=== PATIENT | female | born 2000 | race African-American/Black ===

== ENCOUNTER 2020-11-04 17:44 | Emergency (ER) | payer SELFPAY ==
--- NOTE | 2020-11-04 17:51 | EDM.PDOC ---
ED HPI GENERAL MEDICAL PROBLEM - General Chief Complaint: Gastrointestinal Problem Stated Complaint: VOMITING Time Seen by Provider: 11/04/20 17:45 Source of Information: Reports: Patient History Limitations: Reports: No Limitations - History of Present Illness INITIAL COMMENTS - FREE TEXT/NARRATIVE: HISTORY AND PHYSICAL: History of present illness: Patient is a 20-year-old female who presents to the emergency room with complaints of nausea, vomiting and diarrhea that started approximately 2 hours [employer]. She complaints of generalized abdominal pain, associated with the vomiting and diarrhea. Patient denies any fever, chills, headache, change in vision, syncope or near syncope. Denies any chest pain, back pain, shortness of breath or cough. Denies any constipation or dysuria. Denies any concern for . Has not noted any blood in urine or stool. Patient has been eating and drinking appropriately. Review of systems: As per history of present illness and below otherwise all systems reviewed and negative. Past medical history: As per history of present illness and as reviewed below otherwise noncontributory. Surgical history: As per history of present illness and as reviewed below otherwise noncontributory. Social history: See social history for further information Family history: As per history of present illness and as reviewed below otherwise noncontributory. Physical exam: General: Well developed and well nourished 20 year old black female. Alert and orientated x 3. Nontoxic in appearance and in no acute distress. Vital signs are stable and have been reviewed by me. Nursing notes were reviewed. Accompanied by friend. HEENT: Atraumatic, normocephalic, pupils equal and reactive bilaterally, negative for conjunctival pallor or scleral icterus, mucous membranes moist, TMs normal bilaterally, throat clear, neck supple, nontender, trachea midline. No drooling or trismus noted. No meningeal signs. No hot potato voice noted. Lungs: Clear to auscultation bilaterally. No wheezes, rales, or rhonchi. Chest nontender. Normal work of breathing, no accessory muscles used. Heart: S1S2, regular rate and rhythm without overt murmur, gallops, or rubs. No JVD. No peripheral edema Abdomen: Soft, nondistended, diffuse nonspecific tenderness. Normoactive bowel sounds. Negative for masses or costovertebral tenderness. Skin: Intact, warm, dry. No lesions or rashes noted. Hematologic: No petechiae or purpra. Mucosa appropriate color and normal nail bed color and refill. Extremities: Atraumatic, moves all extremities per self without difficulty or deficits, negative for cords or calf pain. Neurovascular unremarkable. Neuro: Awake, alert, oriented. Cranial nerves II through XII unremarkable. Cerebellum unremarkable. Motor and sensory unremarkable throughout. Exam nonfocal. Psychiatric: Mood and affect are appropriate. Normal thought process. Answering questions appropriately. Notes: *This patient was seen and evaluated during the 2019 SARS-CoV-2 novel coronavirus pandemic period. Community viral transmission is ongoing at time of this encounter and the emergency department is operating under pandemic response procedures. Patient has had vomiting in the ED which is pink/red streaked appearing; faint + for blood (hemoccult card). She denies any recent alcohol use or history of abuse. Denies any excessive use of NSAIDs or GI history (PUD, H.pylori etc...) Will get a CT abd/pelvis to rule out perforation. CT shows diffuse wall thickening of the stomach and proximal small bowel compatible with gastroenteritis. Diffuse fluid distention of the small bowel without evidence of obstruction. Fluid stool throughout the colon which can be seen with diarrhea. Patient feels improved after IV fluids and medications. I have talked with the patient about today's findings, in addition to providing specific details for plan of care. Reassessment at the time of disposition demonstrates that the patient is in no acute distress. The patient is stable for discharge, counseling was provided and we discussed in great detail signs and symptoms that would prompt them to return to the Emergency Department. Medication, follow up and supportive care measures were reviewed and discussed. Voices understanding and is agreeable to plan of care. Denies any further questions or concerns at this time. Diagnostics: CBC, CMP, Lipase, UA, HCGU Therapeutics: IV fluids, Zofran, K-Dur Prescription: K-Dur, Omeprazole Impression: Gastroenteritis Hypokalemia Plan: 1. NO NSAIDS (ibuprofen, Aleve, Naproxen etc..) and NO alcohol. Take the Omeprazole as directed. 2. You can alternate Tylenol as needed for pain and fever management. 3. We encourage you to follow up with your primary care provider and/or recommended specialist in the next few days for re-evaluation and further care/management. 4. If your symptoms should worsen, new symptoms develop or any of the signs and symptoms we discussed should arise please return to the emergency room or call 911 (if needed). Definitive disposition and diagnosis as appropriate pending reevaluation and review of above. Abdomen Pain Score (Numeric/FACES): 7 - Related Data Allergies Allergy/AdvReac Type Severity Reaction Status Date / Time No Known Allergies Allergy Verified 11/04/20 18:02 Home Meds: Home Meds Omeprazole 20 mg PO DAILY 14 Days #14 tablet. 11/04/20 [Rx] Potassium Chloride 40 meq PO DAILY 5 Days #10 tablet.er 11/04/20 [Rx] ED ROS GENERAL - Review of Systems Review Of Systems: Comprehensive ROS is negative, except as noted in HPI. ED EXAM, GI/ABD - Physical Exam Exam: See Below (See dictation) Course - Vital Signs Last Recorded V/S: Last Vital Signs Temp 97.1 F 11/04/20 17:57 Pulse 96 11/04/20 17:57 Resp 18 11/04/20 17:57 BP 121/82 11/04/20 17:57 Pulse Ox 97 11/04/20 17:57 - Orders/Labs/Meds Labs: Laboratory Tests 11/04/20 11/04/20 11/04/20 Range/Units 18:25 18:25 19:30 WBC 9.40 (4.0-11.0) K/uL RBC 5.58 (4.30-5.90) M/uL Hgb 14.3 (12.0-16.0) g/dL Hct 43.0 (36.0-46.0) % MCV 77.1 L (80.0-98.0) fL MCH 25.6 L (27.0-32.0) pg MCHC 33.3 (31.0-37.0) g/dL RDW Std Deviation 45.0 (28.0-62.0) fl RDW Coeff of Maria L 16 H (11.0-15.0) % Plt Count 319 (150-400) K/uL MPV 10.30 (7.40-12.00) fL Neut % (Auto) 85.0 H (48.0-80.0) % Lymph % (Auto) 8.0 L (16.0-40.0) % Dale % (Auto) 6.8 (0.0-15.0) % Eos % (Auto) 0.1 (0.0-7.0) % Baso % (Auto) 0.1 (0.0-1.5) % Neut # (Auto) 8.0 H (1.4-5.7) K/uL Lymph # (Auto) 0.8 (0.6-2.4) K/uL Dale # (Auto) 0.6 (0.0-0.8) K/uL Eos # (Auto) 0.0 (0.0-0.7) K/uL Baso # (Auto) 0.0 (0.0-0.1) K/uL Nucleated RBC % 0.0 /100WBC Nucleated RBCs # 0 K/uL Sodium 140 (136-145) mmol/L Potassium 3.1 L (3.5-5.1) mmol/L Chloride 101 (98-107) mmol/L Carbon Dioxide 25.2 (21.0-32.0) mmol/L BUN 17 (7.0-18.0) mg/dL Creatinine 1.0 (0.6-1.0) mg/dL Est Cr Clr Drug Dosing 69.68 mL/min Estimated GFR (MDRD) > 60.0 ml/min Glucose 117 H (74-106) mg/dL Calcium 9.4 (8.5-10.1) mg/dL Total Bilirubin 0.3 (0.2-1.0) mg/dL AST 17 (15-37) IU/L ALT 18 (14-63) IU/L Alkaline Phosphatase 101 (46-116) U/L Total Protein 9.2 H (6.4-8.2) g/dL Albumin 4.5 (3.4-5.0) g/dL Globulin 4.7 H (2.6-4.0) g/dL Albumin/Globulin Ratio 1.0 (0.9-1.6) Lipase 115 (73-393) U/L Urine Color YELLOW Urine Appearance CLEAR Urine pH 5.0 (5.0-8.0) Ur Specific [place] >= 1.030 (1.001-1.035) Urine Protein NEGATIVE (NEGATIVE) mg/dL Urine Glucose (UA) NEGATIVE (NEGATIVE) mg/dL Urine Ketones TRACE H (NEGATIVE) mg/dL Urine Occult Blood NEGATIVE (NEGATIVE) Urine Nitrite NEGATIVE (NEGATIVE) Urine Bilirubin NEGATIVE (NEGATIVE) Urine Urobilinogen 0.2 (<2.0) EU/dL Ur Leukocyte Esterase NEGATIVE (NEGATIVE) Urine HCG, Qual (NEGATIVE) 11/04/20 Range/Units 19:30 WBC (4.0-11.0) K/uL RBC (4.30-5.90) M/uL Hgb (12.0-16.0) g/dL Hct (36.0-46.0) % MCV (80.0-98.0) fL MCH (27.0-32.0) pg MCHC (31.0-37.0) g/dL RDW Std Deviation (28.0-62.0) fl RDW Coeff of Maria L (11.0-15.0) % Plt Count (150-400) K/uL MPV (7.40-12.00) fL Neut % (Auto) (48.0-80.0) % Lymph % (Auto) (16.0-40.0) % Dale % (Auto) (0.0-15.0) % Eos % (Auto) (0.0-7.0) % Baso % (Auto) (0.0-1.5) % Neut # (Auto) (1.4-5.7) K/uL Lymph # (Auto) (0.6-2.4) K/uL Dale # (Auto) (0.0-0.8) K/uL Eos # (Auto) (0.0-0.7) K/uL Baso # (Auto) (0.0-0.1) K/uL Nucleated RBC % /100WBC Nucleated RBCs # K/uL Sodium (136-145) mmol/L Potassium (3.5-5.1) mmol/L Chloride (98-107) mmol/L Carbon Dioxide (21.0-32.0) mmol/L BUN (7.0-18.0) mg/dL Creatinine (0.6-1.0) mg/dL Est Cr Clr Drug Dosing mL/min Estimated GFR (MDRD) ml/min Glucose (74-106) mg/dL Calcium (8.5-10.1) mg/dL Total Bilirubin (0.2-1.0) mg/dL AST (15-37) IU/L ALT (14-63) IU/L Alkaline Phosphatase (46-116) U/L Total Protein (6.4-8.2) g/dL Albumin (3.4-5.0) g/dL Globulin (2.6-4.0) g/dL Albumin/Globulin Ratio (0.9-1.6) Lipase (73-393) U/L Urine Color Urine Appearance Urine pH (5.0-8.0) Ur Specific [place] (1.001-1.035) Urine Protein (NEGATIVE) mg/dL Urine Glucose (UA) (NEGATIVE) mg/dL Urine Ketones (NEGATIVE) mg/dL Urine Occult Blood (NEGATIVE) Urine Nitrite (NEGATIVE) Urine Bilirubin (NEGATIVE) Urine Urobilinogen (<2.0) EU/dL Ur Leukocyte Esterase (NEGATIVE) Urine HCG, Qual NEGATIVE (NEGATIVE) Meds: Medications Discontinued Medications Generic Name Dose Route Start Last Admin Trade Name Freq PRN Reason Stop Dose Admin Sodium Chloride 1,000 mls @ 999 mls/hr 11/04/20 17:56 11/04/20 18:23 Normal Saline IV 11/04/20 18:56 999 mls/hr STAT ONE Administration Pantoprazole Sodium 80 mg/ 20 mls @ 420 mls/hr 11/04/20 18:31 11/04/20 19:15 Sodium Chloride IVPUSH 11/04/20 18:33 420 mls/hr ONETIME ONE Administration Iopamidol 65 ml 11/04/20 20:16 11/04/20 20:17 Isovue Multipack-370 (76%) IVPUSH 11/04/20 20:17 65 ml ONETIME STA Administration Ondansetron HCl 4 mg 11/04/20 17:56 11/04/20 18:25 Zofran IVPUSH 11/04/20 17:57 4 mg ONETIME ONE Administration Departure - Departure Time of Disposition: 20:57 Disposition: Home, Self-Care 01 Clinical Impression: Gastroenteritis, Hypokalemia - Discharge Information Prescriptions: Omeprazole 20 mg PO DAILY 14 Days #14 tablet.dr Potassium Chloride 40 meq PO DAILY 5 Days #10 tablet.er Instructions: Viral Gastroenteritis, Adult, [id number] Referrals: PCP,None [Primary Care Provider] - Forms: ED Department Discharge Additional Instructions: The following information is given to patients seen in the emergency department who are being discharged to home. This information is to outline your options for follow-up care. We provide all patients seen in our emergency department with a follow-up referral. The need for follow-up, as well as the timing and circumstances, are variable depending upon the specifics of your emergency department visit. If you don't have a primary care physician on staff, we will provide you with a referral. We always advise you to contact your personal physician following an emergency department visit to inform them of the circumstance of the visit and for follow-up with them and/or the need for any referrals to a consulting specialist. The emergency department will also refer you to a specialist when appropriate. This referral assures that you have the opportunity for follow-up care with a specialist. All of these measure are taken in an effort to provide you with optimal care, which includes your follow-up. Under all circumstances we always encourage you to contact your private physician who remains a resource for coordinating your care. When calling for follow-up care, please make the office aware that this follow-up is from your recent emergency room visit. If for any reason you are refused follow-up, please contact the [facility] at and asked to speak to the emergency department charge nurse. [facility] [address] [place] [id number] [id number] Thank you for choosing the [facility] emergency department in [place] for your medical needs today. It was a pleasure caring for you. Today you were seen in the emergency department for nausea and vomiting. 1. NO NSAIDS (ibuprofen, Aleve, Naproxen etc..) and NO alcohol. Take the Omeprazole as directed. 2. You can alternate Tylenol as needed for pain and fever management. 3. We encourage you to follow up with your primary care provider and/or recommended specialist in the next few days for re-evaluation and further care/management. 4. If your symptoms should worsen, new symptoms develop or any of the signs and symptoms we discussed should arise please return to the emergency room or call 911 (if needed). Sepsis Event Note (ED) - Focused Exam Vital Signs: Vital Signs Temp Pulse Resp BP Pulse Ox 11/04/20 17:57 97.1 F 96 18 121/82 97
[2020-11-04] MEDS ORDERED: Ondansetron 4 MG/2 ML SDV IVPUSH ONE (17:56)
[2020-11-04] MEDS ORDERED: Sodium Chloride 0.9% 1,000 ML IV ONE (17:56)
[2020-11-04] MEDS ORDERED: Pantoprazole 80 MG in Sodium Chloride 0.9% 20 ML IVPUSH ONE (18:31)
[2020-11-04 19:04] LABS: CARBON DIOXIDE,CO2 25.2 mmol/L (21.0-32.0); CHLORIDE,CL 101 mmol/L (98-107); GLUCOSE RANDOM 117 mg/dL (74-106); LIPASE 115 U/L (73-393); POTASSIUM,K 3.1 mmol/L (3.5-5.1); SODIUM,NA 140 mmol/L (136-145)
[2020-11-04 19:06] LABS: BLOOD UREA NITROGEN,BUN 17 mg/dL (7.0-18.0)
[2020-11-04] MEDS ORDERED: Iopamidol 755 MG/ML 500 ML Multipack Bottle IVPUSH STA (20:16)
--- NOTE | 2020-11-04 20:50 | CT ---
INDICATION: Nausea, vomiting, diarrhea with abdominal pain. TECHNIQUE: CT of the abdomen and pelvis with 65 cc Isovue 370 IV contrast. Coronal and sagittal reconstructions. COMPARISON: None. FINDINGS: The liver, gallbladder, spleen, pancreas, and adrenal glands are negative. Hepatic and portal veins are patent. Symmetric enhancement the kidneys. No hydronephrosis. Underdistended urinary bladder containing a small amount of layering excreted contrast. Retroverted uterus. The endometrial lining measures 12 mm in thickness which is within normal limits for a premenopausal female. Peripherally enhancing corpus luteum in the left ovary. No abnormality in the right adnexa. There is diffuse wall thickening of the stomach and proximal small bowel in the upper abdomen likely representing gastroenteritis. There is diffuse fluid distention of the small bowel without overt dilation or transition point to suggest obstruction. Fluid stool throughout the colon which can be seen with diarrhea. No evidence of colonic inflammation. Negative appendix. No intraperitoneal free air or fluid. No lymphadenopathy. Small benign bone island in the right iliac bone. The bones are otherwise unremarkable. The lung bases are clear. IMPRESSION: 1. Diffuse wall thickening of the stomach and proximal small bowel compatible with gastroenteritis. 2. Diffuse fluid distention of the small bowel without evidence of obstruction. 3. Fluid stool throughout the colon which can be seen with diarrhea. Please note that all CT scans at this facility use dose modulation, iterative reconstruction, and/or weight-based dosing when appropriate to reduce radiation dose to as low as reasonably achievable. Dictated by Terri Mesa MD @ Nov 04 2020 8:38PM Signed by Dr. Terri Mesa @ Nov 04 2020 8:48PM
[2020-11-04] MEDS ORDERED: Potassium Chloride 20 MEQ Tab.ER PO ONE (20:58)
== END 2020-11-04 21:12 | disposition home or self-care (01) ==
LOC: MW.ED 17:44
DX: K52.9 Noninfective gastroenteritis and colitis, unspecified (principal); E87.6 Hypokalemia
CPT/HCPCS: 36415; 74177; 80053; 81003; 81025; 83690; 85025; 96374; 96375; 99284; A9270; C9113; J2405; J7030; Q9967